=== PATIENT | male | born 1965 | race Two or more races ===

== ENCOUNTER 2019-01-22 13:43 | Inpatient (IN) | payer MEDICAID ==
[~2019-01-22] VITALS: Ht 160 cm; Wt 87.8 kg
[2019-01-22 14:35] VITALS: BP 148/96
--- NOTE | 2019-01-22 14:39 | NUR ---
ED Nurse Note: pt walked in from home c/o palpitations was sent over by pmd. Blood sent to lab pt on monitor vss pt denies pain. awaiting for further orders.
--- NOTE | 2019-01-22 14:56 | Diagnostic Imaging Report ---
Indication: Chest pain Comparison: None A single view chest radiograph was obtained. Findings: No definite infiltrate or overt pulmonary vascular congestion identified. Study limited by low lung volumes. The heart is enlarged. The aorta is mildly enlarged consistent with atherosclerotic vascular disease. The bones are osteopenic. Impression: No acute disease
[2019-01-22 15:06] LABS: BASOPHILS % (AUTO) 0.9 % (0.0-2.0); EOSINOPHILS % (AUTO) 0.9 % (0.0-3.0); HEMATOCRIT 50.2 % (42.0-52.0); HEMOGLOBIN 17.5 G/DL (14.2-18.0); LYMPHOCYTES % (AUTO) 26.7 % (20.0-45.0); MEAN CORPUSCULAR VOLUME 91 FL (80-99); MONOCYTES % (AUTO) 7.7 % (1.0-10.0); NEUTROPHILS % (AUTO) 63.8 % (45.0-75.0); PLATELET COUNT 270 K/UL (150-450); RED BLOOD COUNT 5.52 M/UL (4.70-6.10)
--- NOTE | 2019-01-22 15:20 | NUR ---
ED Nurse Note: Urine sent to lab.
[2019-01-22 15:32] LABS: ANION GAP 8 mmol/L (5-15); BLOOD UREA NITROGEN 8 mg/dL (7-18); CALCIUM 8.7 MG/DL (8.5-10.1); CARBON DIOXIDE 30 MMOL/L (21-32); CHLORIDE 98 MMOL/L (98-107); CREATININE 0.9 MG/DL (0.55-1.30); POTASSIUM 3.2 MMOL/L (3.5-5.1); SODIUM 136 MMOL/L (136-145)
[2019-01-22 15:35] LABS: ALANINE AMINOTRANSFERASE 106 U/L (12-78); ALBUMIN 3.9 G/DL (3.4-5.0); ALBUMIN/GLOBULIN RATIO 0.9 (1.0-2.7); ALKALINE PHOSPHATASE 80 U/L (46-116); ASPARTATE AMINO TRANSFERASE 33 U/L (15-37); BILIRUBIN,TOTAL 0.4 MG/DL (0.2-1.0)
[2019-01-22 16:05] VITALS: BP 140/94
--- NOTE | 2019-01-22 16:05 | NUR ---
ED Nurse Note: Patient resting in bed, no acute distress.
--- NOTE | 2019-01-22 16:25 | Emergency Room Report ---
History of Present Illness General Chief Complaint: Palpitations Source: Patient (Petrona Porras) Present Illness HPI 53-year-old male presents to the emergency department complaining of intermittent episodes of palpitations, tachypnea and tightness in his chest x2 weeks. Patient was evaluated by his primary care provider who performed EKG and was concerned with abnormality so patient was sent to the ER for further evaluation. Patient denies any symptoms at this time he reports that in between episodes his symptoms are completely resolved. Patient does report that he has been having increased dyspnea. He denies significant past medical history other than HTN. He denies recent travel. He denies swelling of the lower extremities. He reports during an episode that he also feels somewhat dizzy/lightheaded he denies vertigo. (Petrona Porras) Allergies: Coded Allergies: No Known Allergies (Unverified , 01/22/19) Patient History Past Medical History: see triage record Past Surgical History: none Pertinent Family History: none Reviewed Nursing Documentation: PMH: Agreed; PSxH: Agreed (Petrona Porras) Nursing Documentation-PMH Past Medical History: No History, Except For Hx Cardiac Problems: Yes (Petrona Porras) Review of Systems All Other Systems: negative except mentioned in HPI (Petrona Porras) Physical Exam Vital Signs Date Time Temp Pulse Resp B/P (MAP) Pulse Ox O2 Delivery O2 Flow Rate FiO2 01/22/19 13:55 99.1 83 20 184/100 (128) 96 Room Air Sp02 EP Interpretation: reviewed, normal General Appearance: no apparent distress, alert, GCS 15, non-toxic Head: normocephalic, atraumatic Eyes: bilateral eye normal inspection, bilateral eye PERRL ENT: hearing grossly normal, normal voice Neck: full range of motion Respiratory: chest non-tender, lungs clear, normal breath sounds, no respiratory distress, no accessory muscle use, no wheezing, speaking full sentences Cardiovascular #1: regular rate, rhythm, no edema Gastrointestinal: non tender, soft Musculoskeletal: back normal, gait/station normal, normal range of motion, non- tender Neurologic: alert, oriented x3, responsive, motor strength/tone normal, sensory intact, normal gait, speech normal, grossly normal Psychiatric: judgement/insight normal Lymphatic: no adenopathy (Petrona Porras) Medical Decision Making PA Attestation Dr. Giraldo Is my supervising Physician whom patient management has been discussed with. (Petrona Porras) Diagnostic Impression: Primary Impression: ACS (acute coronary syndrome) Additional Impression: Possible intermittent arrhythmia ER Course 53-year-old male presents to the emergency department complaining of intermittent episodes of palpitations, tachypnea and tightness in his chest x2 weeks. Patient was evaluated by his primary care provider who performed EKG and was concerned with abnormality so patient was sent to the ER for further evaluation. Patient denies any symptoms at this time he reports that in between episodes his symptoms are completely resolved. Patient does report that he has been having increased dyspnea. He denies significant past medical history other than HTN. He denies recent travel. He denies swelling of the lower extremities. He reports during an episode that he also feels somewhat dizzy/lightheaded he denies vertigo. Ddx considered but are not limited to NE, pneumonia, contusion, costochondritis , PE, ACS, Shoulder strain, Chest wall contusion. aortic dissection. Vital signs: are WNL, pt. is afebrile H&PE are most consistent with [ ] ORDERS: - EK NSR -CBC: Unremarkable -CMP: unremarkable -Troponin: Elevated at 0.59 -TSH: elevated at 4.4 -UDS: all negative CXR: WNL ED INTERVENTIONS: -ASA PO - PT. placed on cardiac monitoring. DISPOSITION: at this time pt. will be admitted to Dr. Benito for ACS, Possible intermittent arrhythmia. Dr. Benito agreed to admit the pt. and to continue pt. care management. Labs Test 01/22/19 14:16 White Blood Count 9.0 K/UL (4.8-10.8) Red Blood Count 5.52 M/UL (4.70-6.10) Hemoglobin 17.5 G/DL (14.2-18.0) Hematocrit 50.2 % (42.0-52.0) Mean Corpuscular Volume 91 FL (80-99) Mean Corpuscular Hemoglobin 31.7 PG (27.0-31.0) Mean Corpuscular Hemoglobin Concent 34.9 G/DL (32.0-36.0) Red Cell Distribution Width 10.0 % (11.6-14.8) Platelet Count 270 K/UL (150-450) Mean Platelet Volume 7.5 FL (6.5-10.1) Neutrophils (%) (Auto) 63.8 % (45.0-75.0) Lymphocytes (%) (Auto) 26.7 % (20.0-45.0) Monocytes (%) (Auto) 7.7 % (1.0-10.0) Eosinophils (%) (Auto) 0.9 % (0.0-3.0) Basophils (%) (Auto) 0.9 % (0.0-2.0) Sodium Level 136 MMOL/L (136-145) Potassium Level 3.2 MMOL/L (3.5-5.1) Chloride Level 98 MMOL/L (98-107) Carbon Dioxide Level 30 MMOL/L (21-32) Anion Gap 8 mmol/L (5-15) Blood Urea Nitrogen 8 mg/dL (7-18) Creatinine 0.9 MG/DL (0.55-1.30) Estimat Glomerular Filtration Rate > 60 mL/min (>60) Glucose Level 87 MG/DL (74-106) Calcium Level 8.7 MG/DL (8.5-10.1) Total Bilirubin 0.4 MG/DL (0.2-1.0) Aspartate Amino Transf (AST/SGOT) 33 U/L (15-37) Alanine Aminotransferase (ALT/SGPT) 106 U/L (12-78) Alkaline Phosphatase 80 U/L (46-116) Troponin I 0.059 ng/mL (0.000-0.056) Total Protein 8.4 G/DL (6.4-8.2) Albumin 3.9 G/DL (3.4-5.0) Globulin 4.5 g/dL Albumin/Globulin Ratio 0.9 (1.0-2.7) Thyroid Stimulating Hormone (TSH) 4.408 uiU/mL (0.358-3.740) Urine Opiates Screen Negative (NEGATIVE) Urine Barbiturates Screen Negative (NEGATIVE) Phencyclidine (PCP) Screen Negative (NEGATIVE) Urine Amphetamines Screen Negative (NEGATIVE) Urine Benzodiazepines Screen Negative (NEGATIVE) Urine Cocaine Screen Negative (NEGATIVE) Urine Marijuana (THC) Screen Negative (NEGATIVE) (Petrona Porras) ER Course This patient was found to have a slightly elevated troponin. In the setting of palpitations, it is concerning that this patient could be having a pathologic arrhythmia and have a demand ischemia. The patient was given oral aspirin and admitted for further evaluation and treatment by cardiology. Patient had no episodes of arrhythmia or symptoms here in the emergency department. (Shannan Giraldo DO) EKG Diagnostic Results EP Interpretation: Dr. Giraldo Rate: normal - 76 bpm Rhythm: NSR ST Segments: no acute changes ASA given to the pt in ED: No PA Scribe Text This Interpretation was scribed by YINKA Porras. (Petrona Porras) Chest X-Ray Diagnostic Results Chest X-Ray Diagnostic Results : Chest X-Ray Ordered: Yes # of Views/Limited/Complete: 1 View Indication: Shortness of Breath EP Interpretation: Yes PA Xray: Interpretation reviewed, by supervising MD, and agrees with findings. Interpretation: no consolidation, no effusion, no pneumothorax, no acute cardiopulmonary disease, other - poor inspiration film Impression: No acute disease Electronically Signed by: Petrona Porras PA-C (Petrona Porras) Last Vital Signs Date Time Temp Pulse Resp B/P (MAP) Pulse Ox O2 Delivery O2 Flow Rate FiO2 01/22/19 14:35 99.1 88 18 148/96 96 Room Air (Petrona Porras) Disposition: ADMITTED INPATIENT Condition: Serious Scripts Unable to Obtain Active Prescriptions or Reported Meds Referrals: NOT CHOSEN IPA/,REFERRING (PCP) Petrona Porras Jan 22, 2019 16:25 Shannan Giraldo DO Jan 22, 2019 17:48
[2019-01-22] MEDS ORDERED: Aspirin EC 325mg tab ORAL ONE (16:30)
--- NOTE | 2019-01-22 19:00 | NUR ---
HAND-OFF: Report given to Dawit Barrett RN.
--- NOTE | 2019-01-22 19:00 | NUR ---
ED Nurse Note: received patient from manuel jimenez. patient resting in bed with no acute distess. pt denies pain or sob at this time. respirations even and unlabored. vss
[2019-01-22 19:44] VITALS: BP 145/94
--- NOTE | 2019-01-22 20:00 | NUR ---
TRANSFER TO FLOOR: Patient transferred to [facility] 201-2 as ordered, per justina robbins. Report given to tony limon. patient in stable condition. belongings sent with patient. belongings list completed with receiving rn.
--- NOTE | 2019-01-22 20:10 | NUR ---
NURSE NOTES: Received pt. and report from Dawit Barrett RN from ED via [facility]. Pt. arrived to unit without incident. Pt. ambulates to bedroom bed showing no signs of acute distress. AOx4 mainly latvian speaking. Respiration even non labored on room air. No sob noted. Pt. denies any pain or discomfort. VS BP 154/94, hr 69, T 98.4F, RR 20, O2sat 95% room air. Oriented to room and location, finish cleaner on showing NSR. IV noted left AC 20g patent and intact. Bed in lowest position, wheels locked and call button within reach. All needs attended and met. Will continue plan of care.
[2019-01-22 21:04] VITALS: BP 154/94
[2019-01-22] MEDS: Metoprolol 25mg tab ORAL SCH (21:08)
[2019-01-22] MEDS: Heparin 5000 units/ml inj SUBQ SCH (21:09)
[2019-01-23] VITALS: BP 152/89
[2019-01-23 04:00] VITALS: BP 139/65
[2019-01-23 07:11] LABS: ALANINE AMINOTRANSFERASE 90 U/L (12-78); ALBUMIN 3.4 G/DL (3.4-5.0); ALBUMIN/GLOBULIN RATIO 0.9 (1.0-2.7); ALKALINE PHOSPHATASE 74 U/L (46-116); ANION GAP 10 mmol/L (5-15); ASPARTATE AMINO TRANSFERASE 36 U/L (15-37); BILIRUBIN,TOTAL 0.5 MG/DL (0.2-1.0); BLOOD UREA NITROGEN 15 mg/dL (7-18); CALCIUM 8.5 MG/DL (8.5-10.1); CARBON DIOXIDE 27 MMOL/L (21-32); CHLORIDE 102 MMOL/L (98-107); CHOLESTEROL 298 MG/DL (< 200); CREATININE 0.9 MG/DL (0.55-1.30); HDL CHOLESTEROL 50 MG/DL (40-60); POTASSIUM 4.7 MMOL/L (3.5-5.1); SODIUM 139 MMOL/L (136-145); TRIGLYCERIDES 542 MG/DL (30-150)
--- NOTE | 2019-01-23 07:41 | NUR ---
HAND-OFF: Report given to SELMA Luciano.
--- NOTE | 2019-01-23 07:49 | NUR ---
NURSE NOTES: Received report from Carlos/RN, Patient is awake, eating breakfast on bed. On room air, no acute distress/SOB noted, denies pain at this time. Able to make needs known. IV on left AC patent, no bleeding or infiltration noted. Bed in low position and locked, Bed alarm engaged, Side-rails up x3. Encouraged to use call light when needed. Call light within reach. will continue to monitor.
[2019-01-23 08:00] VITALS: BP 167/105
[2019-01-23] MEDS: Aspirin Baby 81mg ORAL SCH (08:41)
[2019-01-23] MEDS: Metoprolol 25mg tab ORAL SCH ×2 (08:41→21:46)
[2019-01-23] MEDS: Heparin 5000 units/ml inj SUBQ SCH ×2 (08:41→21:47)
--- NOTE | 2019-01-23 09:33 | NUR ---
CASE MANAGEMENT:REVIEW 53 YR OLD MALE PRESENTED TO ER CC: PALPITATIONS AND DIFFICULTY BREATHING X2 WEEKS SI: ACS POSSIBLE INTERMITTENT ARRHYTHMIA 99.1 83 20 184/100 96% ON RA K-3.2 TROPONIN(+) 0.059 AND 0.048 TSH(+) 4.408 IS: ASA PO CHEST XRAY : TO TELEMETRY IS: ASA PO QD LIPITOR PO QHS LOPRESSOR PO Q12' HEPARIN SQ Q12 NORVASC PO QD INTERQUAL CRITERIA MET
[2019-01-23 12:00] VITALS: BP 140/90
[2019-01-23 16:00] VITALS: BP 147/89
--- NOTE | 2019-01-23 19:31 | NUR ---
HAND-OFF: Report given to Carlos/RN, Patient is in stable condition. Endorsed plan of care.
--- NOTE | 2019-01-23 19:35 | NUR ---
NURSE NOTES: Received report from SELMA Luciano. Patient sitting up on bedside showing no signs of acute distress. AOx4. Respiration even and non labored on room air. No sob noted. Bed in lowest position, wheels locked and call button within reach. All needs attended and met. Will continue plan of care.
--- NOTE | 2019-01-23 19:45 | History and Physical Report ---
DATE OF ADMISSION: 01/22/2019 REASON: Chest pain. HISTORY OF PRESENT ILLNESS: This is a 53-year-old male with several risk factors for premature coronary artery disease was referred to the hospital emergency room by his primary care physician for evaluation of recurring exertional chest pain for the past three weeks. The patient takes no medications at home. PAST MEDICAL HISTORY: Includes hypertension, hyperlipidemia, . ALLERGIES: None known. REVIEW OF SYSTEMS: All systems negative other than noted above. PHYSICAL EXAMINATION: VITAL SIGNS: Blood pressure initially 184/100, heart rate 83, respiratory rate 20, and temperature 99.1. HEENT: Conjunctivae pink. Oropharynx clear. NECK: Supple. Jugular venous pressure normal. No bruits. LUNGS: Clear. CARDIAC: Regular. Normal S1 and S2 with a fourth heart sounds. ABDOMEN: Soft and nontender. EXTREMITIES: No edema. Distal pulses 2+. NEUROLOGIC: Nonfocal. LABORATORY AND DIAGNOSTIC DATA: White count 9, hemoglobin 17.5. Sodium 136, potassium 3.2, bicarb 30, BUN 8, creatinine 0.9. Troponin is 0.059. TSH is 4.4. IMPRESSION: 1. Acute coronary syndrome. 2. Hypokalemia. 3. Malignant range hypertension. PLAN: 1. Cardiac monitoring. 2. Antiplatelet therapy. 3. lipid panel. 4. Serial troponin levels. 5. DVT prophylaxis. 6. Echocardiogram. 7. Titrate antihypertensives to optimize blood pressure control. 8. Ultimately, we will arrange noninvasive assessment of coronary flow reserve. Jah Benito M.D. DR: Whitney JOB#: [id number] CC:
[2019-01-23 20:00] VITALS: BP 169/104
[2019-01-23] MEDS ORDERED: Atorvastatin 20mg tab ORAL SCH (21:00)
[2019-01-24] VITALS: BP 148/98
[2019-01-24 04:00] VITALS: BP 151/95
--- NOTE | 2019-01-24 07:31 | NUR ---
NURSE NOTES: Received report from Carlos/RN, Patient is awake, lying semi-collazo's, resting comfortably. On room air, no acute distress/SOB noted, denies pain at this time. Able to make needs known. IV on left AC patent, no bleeding or infiltration noted. Bed in low position and locked, Bed alarm engaged, Side-rails up x3. Encouraged to use call light when needed. Call light within reach. will continue plan of care.
[2019-01-24 07:45] LABS: ALANINE AMINOTRANSFERASE 72 U/L (12-78); ALBUMIN 3.4 G/DL (3.4-5.0); ALBUMIN/GLOBULIN RATIO 0.9 (1.0-2.7); ALKALINE PHOSPHATASE 71 U/L (46-116); ANION GAP 4 mmol/L (5-15); ASPARTATE AMINO TRANSFERASE 30 U/L (15-37); BLOOD UREA NITROGEN 18 mg/dL (7-18); CALCIUM 8.5 MG/DL (8.5-10.1); CARBON DIOXIDE 28 MMOL/L (21-32); CHLORIDE 99 MMOL/L (98-107); POTASSIUM 4.1 MMOL/L (3.5-5.1); SODIUM 131 MMOL/L (136-145)
[2019-01-24 08:00] VITALS: BP 134/86
[2019-01-24 08:09] LABS: BILIRUBIN,TOTAL 0.5 MG/DL (0.2-1.0)
[2019-01-24] MEDS: Heparin 5000 units/ml inj SUBQ SCH (08:29)
[2019-01-24] MEDS: Aspirin Baby 81mg ORAL SCH (08:29)
[2019-01-24] MEDS: Metoprolol 25mg tab ORAL SCH (09:00)
--- NOTE | 2019-01-24 10:23 | NUR ---
CASE MANAGEMENT:REVIEW 01/24/19 SI: ACS. HYPOKALEMIA. MALIGNANT HTN 97.4 64 18 134/86 97% ON RA NA-131 TROPONIN (+) X1 AND NEGATIVE X2 IS: NORVASC PO QD LOPRESSOR PO Q12 ASA PO QD HEPARIN SQ Q12 : TELEMETRY STATUS DCP: FROM HOME PLAN: STRESS TEST FOR TODAY
[2019-01-24 12:00] VITALS: BP 139/84
[2019-01-24 16:00] VITALS: BP 161/92
--- NOTE | 2019-01-24 16:05 | NUR ---
NM Myocardial Perfusion scan complete.
--- NOTE | 2019-01-24 18:16 | Diagnostic Imaging Report ---
Indications: Chest pain, hypertension Technique: Single day single isotope protocol utilized. Initially, resting images obtained using IV administration 10.8 millicuries 99M technetium Myoview. Subsequently, patient underwent treadmill stress testing. See cardiology report for details. During exercise, IV administration . 2.7 mCi 99 M technetium Myoview. SPECT and planar images obtained. SPECT images gated to 8 phases of the cardiac cycle were also obtained, and reformatted into cine images for evaluation of ejection fraction. Comparison: none Findings: Patient achieved a heart rate of 133 bpm, short of the target heart rate 143 bpm. Exercise stopped due to fatigue. Per cardiology report, patient experienced no chest pain during exercise. Per cardiology report, resting EKG demonstrates normal sinus rhythm with mild left ventricular hypertrophy. No significant ST changes were noted during exercise. Imaging demonstrates normal poststress perfusion. No fixed nor reversible post stress perfusion defects are demonstrated. Calculated post stress ejection fraction 73%. No focal wall motion abnormality Impression: Nonischemic clinical response to pharmacologic stress, per cardiology report Nonischemic electrocardiographic response to pharmacologic stress, per cardiology report No imaging findings to suggest ischemia, at level of stress achieved. Calculated post stress ejection fraction greater than 70% This agrees with the preliminary interpretation provided overnight by [facility] teleradiology service.
--- NOTE | 2019-01-24 19:50 | NUR ---
HAND-OFF: Report given to Joe/RN, Patient in stable condition. Endorsed plan of care.
--- NOTE | 2019-01-24 19:50 | NUR ---
NURSE NOTES: Pt is discharged. Girlfriend came to pick him up. Pt is fully alert and ambulatory. Denies any pain. Pt in stable condition.
--- NOTE | 2019-01-26 08:39 | Discharge Summary ---
Discharge Summary Discharge Summary _ DATE OF ADMISSION: 01/22/2019 DATE OF DISCHARGE: 01/24/2019 DISCHARGED BY: Dr. Jah Benito BRIEF HOSPITAL COURSE: Patient is a 53-year-old male, with history of hypertension, hyperlipidemia, risk factors for premature coronary artery disease, was referred to the hospital emergency room by his primary care physician for evaluation of recurring exertional chest pain for the past 3 weeks. Upon evaluation at the ED, blood pressure was 184/100 pulse rate 83. O2 saturation 96% on room air. EKG was in normal sinus rhythm. He was given aspirin. Blood work showed normal CBC and CMP, except for potassium 3.2. ALT 106. Troponin was elevated to 0.59. TSH elevated to 4.4. Urine drug screen was negative. Chest x-ray did not show any acute disease. Due to elevated troponin, he was admitted for further cardiac monitoring. He was admitted to telemetry. Cardiac enzymes were monitored. He was placed on no added salt diet. Was given potassium supplement. He was continued on aspirin daily. He was given amlodipine and metoprolol he was given Lipitor for cholesterol. Echocardiogram was done. Troponin down trended. Free T4 was normal. T3 uptake still pending. Stress test was negative. He was cleared for discharge home. FINAL DIAGNOSES: Acute coronary syndrome Hypokalemia Malignant range hypertension DISPOSITION: Patient was discharged home. DISCHARGE MEDICATIONS: Refer to Discharge Medication List. DISCHARGE INSTRUCTIONS: Follow-up with PCP in a week. I have been assigned to complete a discharge summary on this account, I was not involved with the patient's management.--DONNA Healy Jacqueline Robles NP Jan 26, 2019 08:39
== END 2019-01-24 20:20 | disposition home or self-care (01) | DRG 198 ==
LOC: EMR 14:36 → 2E 17:13 → EDBEDREQSVC 17:20 → EDBEDREQ 18:24
DX: I24.9 Acute ischemic heart disease, unspecified (principal); E87.6 Hypokalemia; I10 Essential (primary) hypertension; E78.5 Hyperlipidemia, unspecified
CPT/HCPCS: 36415; 71045; 78452; 80053; 80061; 80307; 83735; 84439; 84443; 84480; 84484; 85025; 93005; 93017; 93306; 99285; J8499